=== PATIENT | female | born 1965 | race African-American/Black ===

== ENCOUNTER 2016-05-14 20:51 | Emergency (ER) | payer OTHER ==
[~2016-05-14] VITALS: Ht 157.5 cm; Wt 56.0 kg
[2016-05-14 21:07] VITALS: BP 172/94; PULSE 88; RESP 20; TEMP 99.2; O2SAT 100
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
[2016-05-14] MEDS ORDERED: CYCL1TAB29 PO (21:58)
[2016-05-14] MEDS ORDERED: NAPR500 PO (21:58)
[2016-05-14] MEDS ORDERED: DIAZEPAM 2 MG TAB PO ONE (22:00)
[2016-05-14] MEDS ORDERED: ACETAMINOPHEN/HYDROcodone 325 MG/5 MG TAB PO ONE (22:15)
== END 2016-05-14 23:40 | disposition home or self-care (01) ==
LOC: NEPB 20:51
DX: S06.899A Other specified intracranial injury with loss of consciousness of unspecified duration, initial encounter (principal); S20.211A Contusion of right front wall of thorax, initial encounter; S40.011A Contusion of right shoulder, initial encounter; F07.81 Postconcussional syndrome; V29.9XXA Motorcycle rider (driver) (passenger) injured in unspecified traffic accident, initial encounter; Y93.9 Activity, unspecified
CPT/HCPCS: 70450; 71111; 72125; 73030; 94150